=== PATIENT | male | born 1975 ===

== ENCOUNTER 2017-07-10 15:58 | Emergency (ER) | payer BC ==
[2017-07-10] MEDS ORDERED: Ciprofloxacin 500 MG Tab ONE (16:40)
--- NOTE | 2017-07-10 16:52 | EDM.PDOC ---
ED HPI GENERAL MEDICAL PROBLEM - General Chief Complaint: General Stated Complaint: SWOLLEN GABBIE AREA Time Seen by Provider: 07/10/17 16:17 Source of Information: Reports: Patient History Limitations: Reports: No Limitations - History of Present Illness INITIAL COMMENTS - FREE TEXT/NARRATIVE: Patient is a 41 year old man who was sitting in his deer [place] hunting. He had a lot of deer around him and he tried to urinate into the urinal he had and his underwear and clothes pinched the end of his penis against the urinal. It then hurt when he urinated and he noted a few drops of blood in his underwear and that is why he has come in. His penis feels better and he did ice it which has seemed to relieve the swelling and pain. No fever or chills and no other complaints. Onset: Today Onset Date: 07/10/17 Onset Time: 14:00 Duration: Hour(s): (2) Location: Reports: Other (Pinched penis with urinal in deer blind.) Quality: Reports: Burning Severity: Mild Improves with: Reports: Other (urination and ice) Worsens with: Reports: None Context: Reports: Other (Hunting in deer stand as noted above.) Associated Symptoms: Reports: No Other Symptoms Treatments RECRUITING CONSULTANT: Reports: Other (see below) (Ice.) - Related Data Allergies Allergy/AdvReac Type Severity Reaction Status Date / Time No Known Allergies Allergy Verified 07/10/17 16:17 Home Meds: Home Meds NK [No Known Home Meds] 07/10/17 [History] Past Medical History - Past Health History Medical/Surgical History: Denies Medical/Surgical History Social & Family History - Family History Family Medical History: Noncontributory - Tobacco Use Smoking Status *Q: Never Smoker Second Hand Smoke Exposure: No - Caffeine Use Caffeine Use: Reports: None - Recreational Drug Use Recreational Drug Use: No ED ROS GENERAL - Review of Systems Review Of Systems: ROS reveals no pertinent complaints other than HPI. ED EXAM, GENERAL - Physical Exam Exam: See Below Exam Limited By: No Limitations General Appearance: Alert, WD/WN, No Apparent Distress Eye Exam: Bilateral Eye: EOMI, PERRL Ears: Normal External Exam Ear Exam: Bilateral Ear: Auricle Normal, Canal Normal, TM normal Nose: Normal Inspection, Normal Mucosa, No Blood Throat/Mouth: Normal Inspection, Normal Lips, Normal Teeth, Normal Gums, Normal Oropharynx, Normal Voice, No Airway Compromise Head: Atraumatic, Normocephalic Neck: Normal Inspection, Supple, Non-Tender, Full Range of Motion Respiratory/Chest: No Respiratory Distress, Lungs Clear, Normal Breath Sounds, No Accessory Muscle Use, Chest Non-Tender Cardiovascular: Normal Peripheral Pulses, Regular Rate, Rhythm, No Edema, No Gallop, No JVD, No Murmur, No Rub (Male) Exam: No Hernia, Normal Inspection, Circumcised, Other (Penis appears normal and no swelling, blood or tenderness is noted at time of exam. He says the swelling and pain have gone away.) Course - Vital Signs Text/Narrative:: Unremarkable ED course. He did have RBC's in his urine and urine was set up for culture. He is feeling much better but due to the blood we will cover for a urethritis with Cipro 500 mg po bid x 3 days, #6 and await culture results. I think this is a traumatic urethritis but he should recover quickly. He will follow up with us here if any further problems arise. Last Recorded V/S: Last Vital Signs Temp 36.1 C 07/10/17 16:21 Pulse 78 07/10/17 16:21 Resp 16 07/10/17 16:21 BP 160/78 H 07/10/17 16:21 Pulse Ox 100 07/10/17 16:21 - Orders/Labs/Meds Orders: Active Orders 24 hr Category Date Time Status CULTURE URINE [RM] Stat Lab 07/10/17 16:34 Uncollected Labs: Laboratory Tests 07/10/17 Range/Units 16:18 Urine Color Yellow Urine Appearance Clear (CLEAR) Urine pH 5.5 (5.0-8.0) Ur Specific [place] 1.020 (1.003-1.030) Urine Protein Negative (NEGATIVE) mg/dL Urine Glucose (UA) Negative (NEGATIVE) mg/dL Urine Ketones Negative (NEGATIVE) mg/dL Urine Occult Blood Small H (NEGATIVE) Urine Nitrite Negative (NEGATIVE) Urine Bilirubin Negative (NEGATIVE) Urine Urobilinogen 0.2 (0.2-1.0) E.U./dL Ur Leukocyte Esterase Negative (NEGATIVE) Urine RBC 20-30 H /HPF Urine WBC 0-5 H /HPF Ur Squamous Epith Cells Few /HPF Departure - Departure Time of Disposition: 16:55 Disposition: Home, Self-Care 01 Condition: Good Clinical Impression: Traumatic injury of the bladder and urethra - Discharge Information Instructions: Urethritis, Adult, Ciprofloxacin tablets Forms: ED Department Discharge - My Orders Last 24 Hours: My Active Orders 07/10/17 16:34 CULTURE URINE [RM] Stat - Assessment/Plan Last 24 Hours: My Active Orders 07/10/17 16:34 CULTURE URINE [RM] Stat
== END 2017-07-10 16:45 | disposition home or self-care (01) ==
LOC: LB.ED 15:58
DX: S37.20XA Unspecified injury of bladder, initial encounter (principal); S37.30XA Unspecified injury of urethra, initial encounter; W23.0XXA Caught, crushed, jammed, or pinched between moving objects, initial encounter
CPT/HCPCS: 81001; 87086; 99283; A9270